=== PATIENT | female | born 1965 | race Caucasian/White ===

== ENCOUNTER 2023-06-17 09:22 | Outpatient (AMB) | payer OTHER, SELFPAY ==
--- NOTE | 2023-06-17 10:36 | AM.OFFWIN_ITS ---
Intake Vital Signs 06/17/23 10:49 Height 5 ft 4 in Weight 187 lb BMI 32.1 BP 118/74 Blood Pressure Location Lt brachial Position Sitting Pulse 75 Temp 97.1 F Temp Source Temporal Artery Scan Pulse Oximetry (%) 97 Oxygen Delivery Method Room Air Intake Visit Reasons: [employer]/headaches and trouble sleeping ([id number]) Intake Note: pt is here today for headache and trouble sleeping started 2 days ago Patient Tobacco Use Status: Never used Tobacco Patient : No Allergies Penicillins Allergy (Intermediate, Verified 06/17/23 11:27) Unknown Sulfa (Sulfonamide Antibiotics) Allergy (Unknown, Verified 06/17/23 11:27) Unknown Azithromycin Allergy (Intermediate, Uncoded 06/17/23 11:27) Unknown Do you need a note to return to daycare/school/sports/work: Yes HPI HPI Comments History of Present Illness Details Patient is a 58-year-old female in today for a sick visit. Patient states that she started to feel headache, ear pain, nasal congestion, cough, and sore throat after attending two separate [employer] parties. She states that the symptoms started 3 days prior to arrival. She has taken [id number] Tylenol with little effect. Denies any nausea, vomiting, dizziness, chest pain, shortness of breath. Will obtain in office upper respiratory swab. PFSH Social History Patient Tobacco Use Status: Never used Tobacco Patient : No Physical Exam Vital Signs: Last Vital Signs Temp 97.1 F 06/17/23 10:49 Pulse 75 06/17/23 10:49 BP 118/74 06/17/23 10:49 Pulse Ox 97 06/17/23 10:49 Oxygen Delivery Method Room Air 06/17/23 10:49 BMI result Body Mass Index 32.1 Patient's vital signs of reviewed and are stable Const Other: Appearance: Alert.? Oriented X3.? No acute distress.? Head: Normocephalic, atraumatic, no step-offs or deformities Eyes: Pupils equal, round and reactive to light.? ENT: Pharynx normal. Erythema and effusion of left ear. No erythema of right ear, Patient has tympanostomy tube in right ear. ? Neck: Normal inspection.? Neck supple.? CVS: Normal heart rate and rhythm.? Pulses normal.? Respiratory: No respiratory distress.? Breath sounds normal.? Neuro: Oriented X 3.? No motor deficit.? No sensory deficit. CN 2-12 intact Results Reviewed Results Reviewed: Will call patient with upper respiratory swab results. Assessment & Plan Assessment & Plan (1) Otitis media of left ear: Comment: Patient will be given doxycycline and prednisone to be taken as directed. Patient has been educated on side effects of these medications and when to stop taking them. Patient is agreeable to this plan Code(s): H66.92 - Otitis media, unspecified, left ear Qualifiers: Otitis media type: unspecified Qualified Code(s): H66.92 - Otitis media, unspecified, left ear Plan: Take your medications as prescribed. If you were prescribed antibiotics today, it is important that you take your medication to their entirety, do not skip any doses, do not finish them early. Follow-up with your primary care provider this week. Return to the emergency department with new or worsening symptoms. Such as fevers, chills, chest pain, shortness of breath, nausea, vomiting, dizziness, headache, vision changes, lethargy In case of emergency call 911 Orders: Orders SARS-CoV2/FLU/RSV Today J06.9 - Acute upper respiratory infection, unspecified Medications: New doxycycline hyclate 100 mg PO BID 14 tabs 0RF prednisone 40 mg (2 x 20 mg) PO DAILY 5 tabs 0RF Coding Level of Care Code New Pt Level 3 (29503) Diagnoses Left otitis media, unspecified otitis media type H66.92 Otitis media type: unspecified Time Spent (min) 15
[2023-06-17 10:49] VITALS: BP 118/74; PULSE 75; TEMP 36.2; O2SAT 97; BMI 32.1
== END 2023-06-17 11:59 | disposition home or self-care (01) ==
PROVIDERS: Visit Provider Nurse Practitioner Primary Care
DX: H66.92 Otitis media, unspecified, left ear (principal)
CPT/HCPCS: 99203

== ENCOUNTER 2023-06-17 13:58 | Outpatient (REF) | payer OTHER, SELFPAY ==
[2023-06-17 15:00] LABS: Influenza A PCR NEGATIVE (Negative); Influenza B PCR NEGATIVE (Negative); Resp Syncy Virus RNA Qual PCR NEGATIVE (Negative); SARS COV2 PCR INHOUSE POSITIVE (Negative)
== END 2023-06-17 13:59 | disposition home or self-care (01) ==
LOC: HO.HMGCLNP 13:58
PROVIDERS: Visit Provider Nurse Practitioner Primary Care
DX: Z11.52 Encounter for screening for COVID-19 (principal); J06.9 Acute upper respiratory infection, unspecified
CPT/HCPCS: 0241U